=== PATIENT | male | born 1995 | race Two or more races ===

== ENCOUNTER 2020-05-31 00:17 | Emergency (ER) | payer OTHER ==
--- NOTE | 2020-05-31 00:50 | ER Document Report ---
ED General - HPI Associated symptoms: Other - See HPI Exacerbated by: Other - See HPI Relieved by: Other - See HPI <MARY JANE DUARTE IV - Last Filed: 05/31/20 05:23> <PRO MOLINA - Last Filed: 05/31/20 14:16> <VAUGHNDEANNA Cabrera - Last Filed: 05/31/20 14:26> - General Chief Complaint: Psych Problem Stated Complaint: PSYCH Time Seen by Provider: 05/31/20 00:27 Primary Care Provider: [facility] [Provider Group] - Follow up as needed (Civilian Therapy/Counseling) [facility] [Provider Group] - Follow up as needed (Civilian Medication Management) [facility] [Outside] - Follow up as needed (Civilian Medication Management and Therapy/Counseling) [facility] [Outside] - Follow up as needed [facility] [Outside] - Follow up as needed RAJWINDER GUIDRY DO [NO LOCAL MD] - Follow up as needed - HPI Context: This is a 25-year-old male presenting via EMS for a chief complaint of depression and suicidal ideation. Patient states that he "feels depressed and suicidal all the time." Patient denies attempts to harm self but does admit to suicidal thoughts. Patient admits to drinking alcohol today. Patient denies ingestion of excessive amounts of [id number] or prescription medication. Patient is complaining about stressors at work that exacerbate his depression is suicidal thoughts. Patient denies alleviating factors. Patient denies fever, chills, headache, loss of sense of taste or smell, shortness of breath, cough, chest pain, abdominal pain. Patient denies history of COVID-19 infection or known exposure to other persons positive for COVID-19 or exposure to persons under investigation for COVID-19. Patient denies being in physical pain but states he is an severe emotional pain. Patient is not able to rate this on a scale of 0-5. Patient denies visual or auditory hallucinations. (MARY JANE BUSCH IV) - Related Data Allergies/Adverse Reactions: No Known Allergies Allergy (Verified 05/31/20 08:10) Past Medical History - General Information source: Patient - Social History Smoking Status: Never Smoker Frequency of alcohol use: Occasional Drug Abuse: None Family History: Reviewed & Not Pertinent <MARY JANE DUARTE IV - Last Filed: 05/31/20 05:23> Review of Systems - Review of Systems Constitutional: No symptoms reported EENT: No symptoms reported Cardiovascular: No symptoms reported Respiratory: No symptoms reported Gastrointestinal: No symptoms reported Genitourinary: No symptoms reported Male Genitourinary: No symptoms reported Musculoskeletal: No symptoms reported Skin: No symptoms reported Hematologic/Lymphatic: No symptoms reported Neurological/Psychological: Depression, Suicidal ideation -: Yes All other systems reviewed and negative <MARY JANE DUARTE IV - Last Filed: 05/31/20 05:23> Physical Exam <MARY JANE DUARTE IV - Last Filed: 05/31/20 05:23> - Vital signs Vitals: Temp 98.8 F 05/31/20 00:18 - Notes Notes: CONSTITUTIONAL [Vital signs reviewed, Patient appears comfortable, Alert and oriented X 3, Normal stature.] HEAD [Atraumatic, Normocephalic.] EYES [Eyes are normal to inspection, No discharge from eyes, Extraocular muscles intact, Sclera are normal, Conjunctiva are normal.] ENT Nose examination normal, Posterior pharynx normal, Mouth normal to inspection.] NECK [Normal ROM, No jugular venous distention, No meningeal signs] RESPIRATORY CHEST [Chest is nontender, Breath sounds normal, No respiratory distress.] CARDIOVASCULAR [RRR, No murmurs, Normal S1 S2, No rub, No gallop.] ABDOMEN [Abdomen is nontender, No pulsatile masses, No other masses, Bowel sounds normal, No distension, No peritoneal signs, No hernias.] BACK [There is no CVA Tenderness, There is no tenderness to palpation, Normal inspection.] UPPER EXTREMITY [Inspection normal, No cyanosis, No clubbing, No edema, 2+ radial pulses.] LOWER EXTREMITY [Inspection normal, No cyanosis, No clubbing, No edema, No calf tenderness, 2+ femoral pulses.] NEURO [No focal motor deficits, No focal sensory deficits, Speech normal.] SKIN [Skin is warm, Skin is dry, Skin is normal color.] PSYCHIATRIC [Patient appears anxious at times and then depressed at others. Patient has poor eye contact. No tangential or rapid speech is present.] (MARY JANE DUARTE IV) Course - Laboratory Result Diagrams: 05/31/20 00:50 05/31/20 00:50 <MARY JANE DUARTE IV - Last Filed: 05/31/20 05:23> - Laboratory Result Diagrams: 05/31/20 00:50 05/31/20 00:50 <PRO MOLINA - Last Filed: 05/31/20 14:16> - Laboratory Result Diagrams: 05/31/20 00:50 05/31/20 00:50 <DEANNA MENDES A - Last Filed: 05/31/20 14:26> - Re-evaluation Re-evalutation: 05/31/20 02:42 This MD spoke to person with the transfer center at . Person this MD spoke to stated that they could not accept the patient at their facility with IVC paperwork. Person stated that if the IVC paperwork was rescinded then they would consider excepting the patient at their psychiatric facility. 05/31/20 05:23 Patient is medically cleared. Patient is awaiting consultation with behavioral health at this facility. (MARY JANE DUARTE IV) - Vital Signs Vital signs: Temp Pulse Resp BP Pulse Ox 98.4 F 70 14 130/79 H 98 05/31/20 08:24 05/31/20 08:24 05/31/20 05:39 05/31/20 08:24 05/31/20 08:24 - Laboratory Laboratory results interpreted by me: 05/31/20 00:50 Salicylates < 1.0 L Acetaminophen < 10 L - EKG Interpretation by Me Additional EKG results interpreted by me: 05/31/20 01:03 EKG obtained on 05/31/2020 at 00 56 hours was interpreted by this MD. Findings: Normal sinus rhythm, rate 74, normal axis, ME intervals within normal limits, P waves proceed QRS complexes, QRS complex appears narrow, there are no obvious patterns of ST segment elevation, depression or reciprocal changes present to suggest acute myocardial ischemia or infarction. Impression: Normal sinus rhythm with nonspecific ST segments. (MARY JANE DUARTE IV) Discharge <MARY JANE DUARTE IV - Last Filed: 05/31/20 05:23> <PRO MOLINA - Last Filed: 05/31/20 14:16> <DEANNA MENDES A - Last Filed: 05/31/20 14:26> - Discharge Clinical Impression: Suicidal ideation Depression Qualifiers: Depression Type: unspecified Qualified Code(s): F32.9 - Major depressive disorder, single episode, unspecified Acute alcohol intoxication Qualifiers: Complication of substance-induced condition: uncomplicated Qualified Code(s): F10.920 - Alcohol use, unspecified with intoxication, uncomplicated Condition: Stable Disposition: HOME, SELF-CARE Instructions: Acute Alcohol Intoxication ([facility]) Additional Instructions: You have been evaluated by both medical and behavioral health teams for suicidal ideation, depression, and alcohol intoxication. You have been deemed appropriate for discharge. While in the emergency department you received the following services/or had access to: Medical screening and assessment, nursing services, dietary services, pharmacological services, one-on-one counseling and/or psychotherapy, environmental services, and continuous observation by a patient campus safety officer. You are recommended to abstain from drinking alcohol as it is a depressant and can cause an increase in depression and symptoms. You are encouraged to continue your home medications of Prozac and Trazodone as directed and follow up with medication provider, as well as re establish therapy services. Acute Alcohol Intoxication (alcohol is a depressant) Your evaluation revealed very high levels of alcohol. You can from dri nking a large amount of alcohol rapidly! Further, there's the risk of falls, traffic accidents, and fights. A high portion (about 50 percent) of the serious injuries seen in hospital emergency rooms are caused by alcohol. Alcohol overdosage is usually due to an underlying emotional or psychiatric problem. You may benefit from counselling. If "binge" drinking is an ongoing problem for you, or if you drink ANY AMOUNT of alcohol EVERY day, you most likely have a tendency to alcoholism. You should avoid alcohol totally. We can refer you for treatment. Persons with alcohol problems are often also prone to other addictions -- you should discuss any use of medications or drugs with the doctor. You should be watched at home for the next several hours by someone who has not been drinking. Get extra fluids for the next 24 hours. Call the doctor if there is repeated vomiting, increasing headache, decreasing level of alertness, or any other worsening. DEPRESSION: (alcohol often increases this and other symptoms) Your evaluation reveals that you have mental depression. While symptoms may be vague, they often include disturbance of sleep, fatigue, loss of appetite, and general loss of interest in life. While depression may be a side effect of drugs, or a reaction to a major change in your life, many cases have no known cause. If depression is acute, and related to a major loss in your life, you can expect it to clear completely with time. If you have been depressed a long time, are prone to repeated bouts of depression or low mood, or have been thinking of suicide, get help. Depression can be treated with anti-depressant medication and counselling. Long-term depression will often take a few weeks to clear, even with appropriate medication. Follow-up care is important. SUICIDAL IDEATION: Suicidal ideation is a common medical term for thoughts about suicide, which may be as detailed as a formulated plan, without the suicidal act itself. Although most people who undergo suicidal ideation do not commit suicide, some go on to make suicide attempts. The range of suicidal ideation varies greatly from fleeting to detailed planning, role playing, and unsuccessful attempts. While thoughts about suicide are common, most people do not carry out serious actions to commit suicide. Based upon your evaluation and discussion with you, we do not believe you are currently at risk to act upon your thoughts of suicide. You have agreed to return to the Emergency Department, at any time, if you feel inclined to act upon your suicidal thoughts. FOLLOW-UP CARE: You are recommended to follow up with your current medication provider and re establish therapy/counseling services via [facility] or other base resources. You have also been provided local civilian resources which highlighted both local mobile crisis numbers, listed the 's Affairs Crisis Hotline number, and documented [facility] for medication and therapy or [facility] for therapy and [facility] for medication management. If you experience worsening or a significant change in your symptoms notify your physician immediately, utilize crisis numbers or return to the Emergency Department at any time for re-evaluation. Referrals: RAJWINDER GUIDRY DO [NO LOCAL MD] - Follow up as needed [facility] [Outside] - Follow up as needed [facility] [Outside] - Follow up as needed [facility] [Provider Group] - Follow up as needed (Civilian Therapy/Counseling) [facility] [Outside] - Follow up as needed (Civilian Medication Management and Therapy/Counseling) [facility] - Follow up as needed (Civilian Medication Management)
[2020-05-31 01:00] LABS: ABSOLUTE EOSINOPHILS # (AUTO) 0.2 10^3/uL (0.0-0.6); ABSOLUTE LYMPHOCYTES (AUTO) 1.6 10^3/uL (0.5-4.7); ABSOLUTE MONOCYTES (AUTO) 0.4 10^3/uL (0.1-1.4); ABSOLUTE NEUT (AUTO) 2.3 10^3/uL (1.7-8.2); BASOPHILS % (AUTO) 0.8 % (0-2); EOSINOPHILS % (AUTO) 3.7 % (0-6); HEMATOCRIT 45.7 % (37.9-51.0); HEMOGLOBIN 16.5 g/dL (13.5-17.0); LYMPHOCYTES % (AUTO) 35.4 % (13-45); MEAN CORPUSCULAR HEMOGLOBIN 31.3 pg (27.0-33.4); MEAN CORPUSCULAR VOLUME 87 fl (80-97); PLATELET COUNT 161 10^3/uL (150-450); RED BLOOD COUNT 5.26 10^6/uL (4.35-5.55); RED CELL DISTRIBUTION WIDTH 12.8 % (11.5-14.0); SEGMENTED NEUTROPHILS % (AUTO) 52.1 % (42-78); TOTAL CELLS COUNTED % (AUTO) 100 %; WHITE BLOOD COUNT 4.4 10^3/uL (4.0-10.5)
[2020-05-31 01:19] LABS: APPEARANCE,URINE CLEAR; BILIRUBIN,URINE NEGATIVE (NEGATIVE); COLOR,URINE STRAW; GLUCOSE, URINE NEGATIVE (NEGATIVE); KETONES,URINE NEGATIVE (NEGATIVE); LEUKOCYTE ESTERASE,URINE NEGATIVE (NEGATIVE); NITRITE,URINE NEGATIVE (NEGATIVE); PROTEIN,URINE NEGATIVE (NEGATIVE); URINE SPECIFIC GRAVITY 1.006; UROBILINOGEN,URINE NEGATIVE mg/dL (<2.0)
[2020-05-31 01:26] LABS: ALBUMIN 4.3 g/dL (3.5-5.0); ALCOHOL 211 mg/dL (NONE DETECTED); ALKALINE PHOSPHATASE 75 U/L (38-126); ANION GAP 11 (5-19); ASPARTATE AMINO TRANSFERASE 28 U/L (17-59); BILIRUBIN,DIRECT 0.2 mg/dL (0.0-0.4); BILIRUBIN,TOTAL 0.7 mg/dL (0.2-1.3); BLOOD UREA NITROGEN 11 mg/dL (7-20); CALCIUM 9.1 mg/dL (8.4-10.2); CARBON DIOXIDE 29 mmol/L (22-30); CHLORIDE 104 mmol/L (98-107); GLUCOSE 108 mg/dL (75-110); POTASSIUM 3.8 mmol/L (3.6-5.0); TOTAL PROTEIN 6.7 g/dL (6.3-8.2)
[2020-05-31 01:28] LABS: ACETAMINOPHEN < 10 ug/mL (10-30); SALICYLATE < 1.0 mg/dL (2.0-20.0)
[2020-05-31 02:16] LABS: URINE AMPHETAMINES SCREEN NEGATIVE; URINE BARBITURATES SCREEN NEGATIVE; URINE BENZODIAZEPINES SCREEN NEGATIVE; URINE COCAINE SCREEN NEGATIVE; URINE MARIJUANA (THC) SCREEN NEGATIVE; URINE METHADONE SCREEN NEGATIVE; URINE PHENCYCLIDINE SCREEN NEGATIVE
[2020-05-31] MEDS ORDERED: ACETAMINOPHEN 325 MG TABLET PO ONE (07:24)
--- NOTE | 2020-05-31 10:07 | EKG REPORT ---
SEVERITY:- ABNORMAL ECG - SINUS RHYTHM PROBABLE LEFT ATRIAL ABNORMALITY ST ELEV, PROBABLE NORMAL EARLY REPOL PATTERN : Confirmed by: Rody Camacho MD 31-May-2020 10:06:39
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
[2020-05-31 14:30] VITALS: BP 134/79
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
== END 2020-05-31 14:30 | disposition home or self-care (01) ==
LOC: ER 00:17
DX: F32.9 Major depressive disorder, single episode, unspecified (principal); R45.851 Suicidal ideations; F10.120 Alcohol abuse with intoxication, uncomplicated; Y90.7 Blood alcohol level of 200-239 mg/100 ml
CPT/HCPCS: 36415; 80053; 80307; 81001; 85025; 93005; 93010; 99284